=== PATIENT | female | born 1995 | race Caucasian/White ===

== ENCOUNTER 2017-02-23 07:58 | Outpatient (CLI) | payer MEDICAID ==
--- NOTE | 2017-02-23 12:06 | Ultrasound Report ---
PELVIC ULTRASOUND: 02/23/2017 CLINICAL INDICATION: Dyspareunia. TECHNIQUE: Transabdominal pelvic ultrasound performed for global evaluation. Transvaginal pelvic ul trasound performed for detailed evaluation. Real-time scanning performed and static images obtained. FINDINGS: The uterus is anteverted, measuring 9.8 x 5.1 x 3.3 cm. The endometrial echo complex jorge ures 5 mm. An IUD is noted in the endometrial canal. The right ovary measures 3.6 x 2.1 x 1.9 cm, a nd the left ovary measures 3.0 x 2.2 x 1.8 cm. A small amount of free fluid is noted in the cul-de-s ac. IMPRESSION: SMALL AMOUNT OF FREE FLUID. IUD IN THE ENDOMETRIAL CANAL. JOB #: [id number] EXT JOB #:[id number]
== END 2017-02-23 07:59 | disposition home or self-care (01) ==
LOC: DI 07:58
PROVIDERS: ATTEND Registered Nurse
DX: N94.12 Deep dyspareunia (principal); Z97.5 Presence of (intrauterine) contraceptive device
CPT/HCPCS: 76830; 76856